=== PATIENT | male | born 1955 | race Caucasian/White ===

== ENCOUNTER → 2018-05-27 | Outpatient (CLI) | payer MEDICARE, OTHER ==
[~2018-05-27] MED LIST: ALLO300T PO; AMLO10TA8 PO; ATROPINE SULFATE; CARV10CP PO; CINN500C2 PO; COQ10 PO; DIPH25CA61 PO; DIPHENOXYLATE; FENO54TA17 PO; FINA5TAB4 PO; HYDR-3307 PO; IRON PO; MELA5TAB19 PO; METR500T PO; OMEP40CA6 PO; OMNIPAQUE 350 MG/ML, 100ML BOTTLE ONE; ONDA4TAB7 PO; PROB500T22 PO; TAMS-11 PO; TRAM-47 PO; ZOLP10TA5 PO; ZOLP12.52 PO; [UNRECOGNIZED DRUG - OTHER] PO; pravastatin PO
== END | disposition home or self-care (01) ==
LOC: CFH 09:03
PROVIDERS: ATTEND Family Medicine
DX: K43.9 Ventral hernia without obstruction or gangrene (principal); I70.0 Atherosclerosis of aorta; K40.90 Unilateral inguinal hernia, without obstruction or gangrene, not specified as recurrent; R59.1 Generalized enlarged lymph nodes; S22.089A Unspecified fracture of T11-T12 vertebra, initial encounter for closed fracture; S32.039A Unspecified fracture of third lumbar vertebra, initial encounter for closed fracture; Z90.49 Acquired absence of other specified parts of digestive tract; X58.XXXA Exposure to other specified factors, initial encounter; Y93.89 Activity, other specified; Y92.89 Other specified places as the place of occurrence of the external cause; Y99.8 Other external cause status
CPT/HCPCS: 74177; 82565; Q9967

== ENCOUNTER 2018-08-05 12:32 | Inpatient (IN) | payer MEDICARE ==
[~2018-08-05] VITALS: Ht 175.3 cm; Wt 91.7 kg
[~2018-08-05 12:32] MED LIST changes: -OMNIPAQUE 350 MG/ML, 100ML BOTTLE ONE
--- NOTE | 2018-08-05 13:12 | NUR ---
BREAK RN: PT TO ED ROOM 04 AT THIS TIME
[2018-08-05] MEDS ORDERED: SODIUM CHLORIDE 0.9% 1,000 ML IV ONE ×2 (13:24→19:00)
[2018-08-05] MEDS ORDERED: SODIUM CHLORIDE FLUSH 10ML SYR IVF ONE (13:30)
[2018-08-05] MEDS ORDERED: ONDANSETRON 2MG/ML, 2ML IVPush ONE (13:30)
[2018-08-05] MEDS ORDERED: ONDANSETRON 2MG/ML, 2ML ONE (14:05)
[2018-08-05] MEDS ORDERED: HYDROmorphone 1 MG/ML, 1ML VIAL ONE ×2 (14:05→15:07)
[2018-08-05] MEDS: HYDROmorphone 2 MG/ML, 1ML IVPush PRN ×4 (14:07→21:25)
--- NOTE | 2018-08-05 14:07 | NUR ---
FIRST CONTACT WITH PT. PT LAYING IN BED, APPEARS UNCOMFORTABLE. PT MEDICATED PER EMAR FOR PAIN AND NAUSEA SO AT BEDSIDE. BP/SPO2 MONITORING IN PLACE.
[2018-08-05 15:10] LABS: BASOPHILS # (AUTO) 0.06 x10^3/uL (0-0.1); BASOPHILS % (AUTO) 1 % (0-1); EOSINOPHILS # (AUTO) 0.05 x10^3/uL (0-0.4); EOSINOPHILS % (AUTO) 0 % (1-7); LYMPHOCYTES # (AUTO) 0.95 x10^3/uL (1-3.4); LYMPHOCYTES % (AUTO) 7 % (22-44); MD NO; MEAN CORPUSCULAR HEMOGLOBIN 28.9 pg (27.5-34.5); MEAN CORPUSCULAR HGB CONC 32.8 g/dL (33.2-36.2); MEAN PLATELET VOLUME 9.1 fL (7.4-10.4); MONOCYTES % (AUTO) 8 % (2-9); NEUTROPHILS # (AUTO) 10.71 x10^3/uL (1.8-6.8); NEUTROPHILS % (AUTO) 84 % (42-75); PLATELET COUNT 596 x10^3/uL (130-400); RED BLOOD COUNT 4.94 x10^6/uL (4.38-5.82); RED CELL DISTRIBUTION WIDTH 20.1 % (9.4-14.8)
--- NOTE | 2018-08-05 15:10 | NUR ---
PT MEDICATED FOR CONTINUED PAIN. PT REPORTS IMPROVEMENT IN PAIN W/ INITIAL DOSE.
[2018-08-05 15:18] LABS: ALANINE AMINOTRANSFERASE 23 U/L (12-78); ALBUMIN 4.4 g/dL (3.4-5.0); ANION GAP 11 mmol/L (5-15); CALCIUM 10.2 mg/dL (8.5-10.1); CHLORIDE 99 mmol/L (98-107); CREATININE 1.51 mg/dL (0.7-1.3)
[2018-08-05 15:23] LABS: ALKALINE PHOSPHATASE 82 U/L (45-117); BILIRUBIN,TOTAL 0.7 mg/dL (0.2-1.0); TOTAL PROTEIN 8.5 g/dL (6.4-8.2)
[2018-08-05] MEDS ORDERED: ONDANSETRON 2MG/ML, 2ML IVPush PRN (16:30)
[2018-08-05] MEDS ORDERED: FOLI-17 PO (16:34)
[2018-08-05] MEDS ORDERED: DIPH1TAB6 PO (16:34)
[2018-08-05] MEDS ORDERED: METH2.5T PO (16:34)
[2018-08-05] MEDS ORDERED: AMOX1TAB12 PO (16:34)
[2018-08-05] MEDS ORDERED: TINCTURE OF OPIUM (16:34)
[2018-08-05] MEDS ORDERED: PHARMACY MAY ADJ FOR RENAL FX MC PRN (17:00)
[2018-08-05] MEDS ORDERED: HYDROmorphone 2 MG/ML, 1ML ONE (17:15)
--- NOTE | 2018-08-05 17:23 | NUR ---
BREAK RN: PT MEDICATED PER JUN D/T 11/27 ABD PAIN, CT NOTIFIED THAT PT HAS BEEN MEDICATED.
[2018-08-05] MEDS ORDERED: hydrALAzine 20 MG/ML, 1ML IV PRN (17:30)
[2018-08-05] MEDS ORDERED: OMNIPAQUE 350 MG/ML, 100ML BOTTLE ONE (17:49)
[2018-08-05] MEDS: SODIUM CHLORIDE 0.9% 1,000 ML IV SCH (18:23)
--- NOTE | 2018-08-05 18:49 | NUR ---
18F NG TUBE PLACED TO R NARE PER ERP ORDER. CONTINUOUS LOW SUCTION. RESPIRATIONS REMAIN EVEN/UNLABORED. AIRWAY PATENT.
[2018-08-05] MEDS ORDERED: LORazepam 2 MG/ML, 1ML IVPush ONE (19:00)
--- NOTE | 2018-08-05 19:00 | NUR ---
REPORT TO J[place] ADAME
[2018-08-05] MEDS ORDERED: LORazepam 2 MG/ML, 1ML ONE (19:24)
--- NOTE | 2018-08-05 19:28 | NUR ---
PT RESTING ON GURNEY. NG TUBE TO LIS, IV FLUIDS INFUSING, MONITORS IN PLACE, CALL LIGHT WITHIN REACH. MEDICATED PER MAR. AWAITING ROOM FOR ADMIT.
[2018-08-05] MEDS ORDERED: FAMOTIDINE 20 MG/2 ML IVPush SCH (21:00)
[2018-08-05 21:46] VITALS: BP 129/76
[2018-08-06] MEDS: HYDROmorphone 2 MG/ML, 1ML IVPush PRN ×4 (00:28→16:08)
[2018-08-06] MEDS: SODIUM CHLORIDE 0.9% 1,000 ML IV SCH ×2 (00:33→05:41)
[2018-08-06] MEDS ORDERED: ACETAMINOPHEN 325 MG TABLET ONE (00:47)
[2018-08-06] MEDS: ACETAMINOPHEN 325 MG TABLET PO PRN ×2 (00:52→20:57)
[2018-08-06 01:12] VITALS: BP 120/70
[2018-08-06 06:06] LABS: CHLORIDE 106 mmol/L (98-107)
[2018-08-06 06:15] LABS: BASOPHILS # (AUTO) 0.07 x10^3/uL (0-0.1); BASOPHILS % (AUTO) 1 % (0-1); EOSINOPHILS # (AUTO) 0.08 x10^3/uL (0-0.4); EOSINOPHILS % (AUTO) 1 % (1-7); LYMPHOCYTES # (AUTO) 0.91 x10^3/uL (1-3.4); LYMPHOCYTES % (AUTO) 11 % (22-44); MD NO; MEAN CORPUSCULAR HEMOGLOBIN 28.9 pg (27.5-34.5); MEAN CORPUSCULAR HGB CONC 32.7 g/dL (33.2-36.2); MEAN CORPUSCULAR VOLUME 88.4 fL (81-97); MEAN PLATELET VOLUME 8.6 fL (7.4-10.4); MONOCYTES # (AUTO) 0.87 x10^3/uL (0.2-0.8); MONOCYTES % (AUTO) 10 % (2-9); NEUTROPHILS # (AUTO) 6.76 x10^3/uL (1.8-6.8); NEUTROPHILS % (AUTO) 78 % (42-75); PLATELET COUNT 474 x10^3/uL (130-400); RED BLOOD COUNT 4.03 x10^6/uL (4.38-5.82); RED CELL DISTRIBUTION WIDTH 19.6 % (9.4-14.8)
[2018-08-06 06:26] LABS: ANION GAP 8 mmol/L (5-15); CALCIUM 8.7 mg/dL (8.5-10.1)
[2018-08-06 07:50] VITALS: BP 123/75
[2018-08-06] MEDS: PANTOPRAZOLE 40 MG IV IVPush SCH (07:57)
[2018-08-06] MEDS ORDERED: BENZOCAINE AEROSOL SPRAY 20%, 60ML TP PRN (09:00)
[2018-08-06 14:00] VITALS: BP 126/72
[2018-08-06] MEDS ORDERED: POTASSIUM CHLORIDE 20 MEQ in SODIUM CHLORIDE 0.9% 1,000 ML IV SCH (16:20)
[2018-08-06 18:57] VITALS: BP 145/72
[2018-08-06] MEDS: POTASSIUM CHLORIDE 20 MEQ in SODIUM CHLORIDE 0.9% 1,000 ML IV SCH (20:57)
[2018-08-07 00:17] VITALS: BP 126/68
[2018-08-07] MEDS: POTASSIUM CHLORIDE 20 MEQ in SODIUM CHLORIDE 0.9% 1,000 ML IV SCH ×3 (03:35→22:44)
[2018-08-07] MEDS: ACETAMINOPHEN 325 MG TABLET PO PRN ×2 (03:41→21:32)
[2018-08-07 05:33] LABS: CHLORIDE 111 mmol/L (98-107)
[2018-08-07 05:36] LABS: BASOPHILS % (AUTO) 0 % (0-1); EOSINOPHILS # (AUTO) 0.02 x10^3/uL (0-0.4); EOSINOPHILS % (AUTO) 0 % (1-7); LYMPHOCYTES # (AUTO) 0.43 x10^3/uL (1-3.4); LYMPHOCYTES % (AUTO) 4 % (22-44); MD NO; MEAN CORPUSCULAR HEMOGLOBIN 29.7 pg (27.5-34.5); MEAN CORPUSCULAR HGB CONC 33.4 g/dL (33.2-36.2); MEAN CORPUSCULAR VOLUME 88.8 fL (81-97); MEAN PLATELET VOLUME 8.5 fL (7.4-10.4); MONOCYTES % (AUTO) 12 % (2-9); NEUTROPHILS # (AUTO) 9.29 x10^3/uL (1.8-6.8); NEUTROPHILS % (AUTO) 84 % (42-75); PLATELET COUNT 447 x10^3/uL (130-400); RED BLOOD COUNT 3.61 x10^6/uL (4.38-5.82); RED CELL DISTRIBUTION WIDTH 19.1 % (9.4-14.8)
[2018-08-07 05:55] LABS: ANION GAP 10 mmol/L (5-15); CALCIUM 8.2 mg/dL (8.5-10.1); CREATININE 0.86 mg/dL (0.7-1.3)
[2018-08-07 07:20] VITALS: BP 106/63
[2018-08-07] MEDS: PANTOPRAZOLE 40 MG IV IVPush SCH (09:21)
[2018-08-07 14:12] VITALS: BP 106/63
[2018-08-07 19:08] VITALS: BP 123/71
[2018-08-08 02:59] VITALS: BP 114/72
[2018-08-08 06:06] LABS: MEAN CORPUSCULAR HGB CONC 32.6 g/dL (33.2-36.2); MEAN PLATELET VOLUME 8.7 fL (7.4-10.4); PLATELET COUNT 395 x10^3/uL (130-400); RED BLOOD COUNT 3.62 x10^6/uL (4.38-5.82); RED CELL DISTRIBUTION WIDTH 19.1 % (9.4-14.8)
[2018-08-08 06:16] LABS: CHLORIDE 111 mmol/L (98-107)
[2018-08-08 06:23] LABS: ANION GAP 6 mmol/L (5-15); CALCIUM 8.5 mg/dL (8.5-10.1); CREATININE 0.97 mg/dL (0.7-1.3)
[2018-08-08 06:41] LABS: BASOPHILS # (AUTO) 0.07 x10^3/uL (0-0.1); BASOPHILS % (AUTO) 1 % (0-1); EOSINOPHILS # (AUTO) 0.23 x10^3/uL (0-0.4); EOSINOPHILS % (AUTO) 4 % (1-7); LYMPHOCYTES % (AUTO) 16 % (22-44); MD SCAN; MONOCYTES # (AUTO) 1.16 x10^3/uL (0.2-0.8); MONOCYTES % (AUTO) 18 % (2-9); NEUTROPHILS # (AUTO) 3.94 x10^3/uL (1.8-6.8); NEUTROPHILS % (AUTO) 62 % (42-75)
[2018-08-08] MEDS: PANTOPRAZOLE 40 MG IV IVPush SCH (07:38)
[2018-08-08 07:45] VITALS: BP 123/74
[2018-08-08] MEDS: POTASSIUM CHLORIDE 20 MEQ in SODIUM CHLORIDE 0.9% 1,000 ML IV SCH (09:21)
[2018-08-08] MEDS ORDERED: DOCU-131 PO (10:06)
== END 2018-08-08 11:20 | disposition home or self-care (01) | DRG 393 ==
LOC: ED 14:30 → EDIP 16:20 → 3NE 21:00
PROVIDERS: ADMIT Hospitalist; ATTEND Hospitalist
DX: K43.6 Other and unspecified ventral hernia with obstruction, without gangrene (principal); N17.0 Acute kidney failure with tubular necrosis; K51.90 Ulcerative colitis, unspecified, without complications; D64.9 Anemia, unspecified; E78.5 Hyperlipidemia, unspecified; E83.52 Hypercalcemia; E86.0 Dehydration; E87.6 Hypokalemia; I10 Essential (primary) hypertension; K43.9 Ventral hernia without obstruction or gangrene; N40.1 Benign prostatic hyperplasia with lower urinary tract symptoms; Z82.0 Family history of epilepsy and other diseases of the nervous system; Z82.49 Family history of ischemic heart disease and other diseases of the circulatory system; Z90.49 Acquired absence of other specified parts of digestive tract; G89.29 Other chronic pain; K59.00 Constipation, unspecified; M10.9 Gout, unspecified; R33.8 Other retention of urine; M54.9 Dorsalgia, unspecified; R73.9 Hyperglycemia, unspecified; Z88.1 Allergy status to other antibiotic agents; Z88.8 Allergy status to other drugs, medicaments and biological substances
CPT/HCPCS: 36415; 74018; 74021; 74177; 80048; 80053; 82330; 83690; 83735; 84100; 85025; 93005; 96374; 96375; 99285; G0378; J1170; J2405; J3480; Q9967; C9113; J2060; J7030

== ENCOUNTER 2018-08-11 10:42 | Outpatient (CLI) | payer MEDICARE, OTHER ==
[~2018-08-11 10:42] MED LIST changes: +AMOX1TAB12 PO; +DIPH1TAB6 PO; +DOCU-131 PO; +FOLI-17 PO; +METH2.5T PO; +TINCTURE OF OPIUM
[2018-08-11] MEDS ORDERED: PRAV40TA2 PO (11:21)
[2018-08-11] MEDS ORDERED: ASCO-232 PO (11:21)
[2018-08-11] MEDS ORDERED: KRIL1CAP PO (11:21)
[2018-08-11] MEDS ORDERED: MULT1TAB13 PO (11:21)
[2018-08-11] MEDS ORDERED: DOCO300C PO (11:21)
[2018-08-11] MEDS ORDERED: methotrexate INJ (11:21)
[2018-08-11] MEDS ORDERED: CHOL400T10 PO (11:21)
[2018-08-11] MEDS ORDERED: OMEP-110 PO (11:21)
[2018-08-11] MEDS ORDERED: ASPI-496 PO (11:21)
[2018-08-11] MEDS ORDERED: AMOX1TAB12 PO (11:21)
== END 2018-08-11 23:59 | disposition home or self-care (01) ==
LOC: STAR 10:42
PROVIDERS: ATTEND Thoracic Surgery (Cardiothoracic Vascular Surgery)
DX: Z02.9 Encounter for administrative examinations, unspecified (principal)

== ENCOUNTER → 2020-05-04 | Outpatient (CLI) | payer MEDICARE, OTHER ==
[~2020-05-04] MED LIST changes: +AMLO-211 PO; -AMLO10TA8 PO; +ASCO-232 PO; +ASPI-496 PO; +CHOL400T10 PO; +DOCO300C PO; +HYDR-3246 PO; -HYDR-3307 PO; +KRIL1CAP7 PO; +MELA5TAB14 PO; -MELA5TAB19 PO; +MULT1TAB13 PO; +OMEP-110 PO; +OMEP40CA42 PO; -OMEP40CA6 PO; +PRAV40TA2 PO; -TINCTURE OF OPIUM; +TINCTURE OF OPIUM PO; +TURM500C4 PO; +UBID1CAP43 PO; +USTE45DI INJ; +VALERIAN PO; +methotrexate INJ
== END | disposition home or self-care (01) ==
LOC: STAR 10:47
PROVIDERS: ATTEND Colon & Rectal Surgery
DX: Z01.812 Encounter for preprocedural laboratory examination (principal); Z20.828 Contact with and (suspected) exposure to other viral communicable diseases
CPT/HCPCS: 87635; 93005